=== PATIENT | male | born 1990 | race Caucasian/White ===

== ENCOUNTER 2024-05-04 13:20 | Outpatient (CLI) | payer OTHER, SELFPAY ==
--- NOTE | 2024-05-04 11:30 | DI.RAD_ITS ---
Exam(s) XR CERVICAL SPINE COMP 4-5V EXAM: XR CERVICAL SPINE COMP 4-5V CLINICAL HISTORY: M54.2 Cervicalgia evaluate fx. TECHNIQUE: 2D digital imaging was performed. COMPARISON: No exams were available for comparison FINDINGS: Five views No evidence of fracture, listhesis, nor offset of the spinal laminar line. There is no prevertebral soft tissue swelling. All of the disc spaces exhibit normal height. On the oblique views there are no Luschka joint osteop hytes evident and the exiting neural foramina are patent bilaterally. There are no cervical ribs. B one density is normal. No osseous lesions. No prevertebral soft tissue swelling. IMPRESSION: No significant radiographic findings in the cervical spine. DATA REPOSITORY: RADIATION DOSE DELIVERED:
== END 2024-05-04 13:40 ==
LOC: DI 13:22
PROVIDERS: Visit Provider Nurse Practitioner Family
DX: M54.2 Cervicalgia (principal)
CPT/HCPCS: 72050